=== PATIENT | male | born 1980 | race American Indian/Alaskan Native ===

== ENCOUNTER 2016-10-23 08:31 | Emergency (ER) | payer SELFPAY ==
[2016-10-23 08:37] VITALS: BP 147/99
[2016-10-23] MEDS ORDERED: ROCEPHIN IM ONE (09:02)
[2016-10-23] MEDS ORDERED: XYLOCAINE 1% MPF 5 mL INFILTRATI ONE (09:02)
[2016-10-23] MEDS ORDERED: ZITHROMAX PO ONE (09:02)
--- NOTE | 2016-10-23 09:02 | Emergency Department Report ---
ED Male HPI - General Chief complaint: Urogenital-Male Stated complaint: POSS UTI Time Seen by Provider: 10/23/16 08:46 Source: patient Mode of arrival: Ambulatory Limitations: No Limitations - History of Present Illness MD Complaint: dysuria Onset/Timin -: week(s) Location: penis Radiation: none Severity: moderate Severity scale (0 -10): 4 Quality: burning Consistency: intermittent Improves with: none Worsens with: urination discharge (yellow green ), dysuria. denies: swelling, mass, rash, urinary retention, blood in urine, fever, nausea/vomiting, incontinence - Related Data Sexually active: Yes Previous Rx's Medication Instructions Recorded Last Taken Type Doxycycline [Vibramycin CAP] 100 mg PO Q12HR #20 capsule 10/23/16 Unknown Rx metroNIDAZOLE [Flagyl] 500 mg PO ONCE #4 tablet 10/23/16 Unknown Rx Allergies Allergy/AdvReac Type Severity Reaction Status Date / Time shellfish derived Allergy Swelling Verified 10/23/16 08:35 ED Review of Systems ROS: Stated complaint: POSS UTI Other details as noted in HPI Constitutional: denies: chills, fever Eyes: denies: eye pain, eye discharge, vision change ENT: denies: ear pain, throat pain Respiratory: denies: cough, shortness of breath, wheezing Cardiovascular: denies: chest pain, palpitations Endocrine: no symptoms reported Gastrointestinal: denies: abdominal pain, nausea, diarrhea Genitourinary: urgency, dysuria, frequency, discharge. denies: hematuria, testicular pain, testicular mass Musculoskeletal: denies: back pain, joint swelling, arthralgia Skin: denies: rash, lesions Neurological: denies: headache, weakness, paresthesias Psychiatric: denies: anxiety, depression Hematological/Lymphatic: denies: easy bleeding, easy bruising ED Past Medical Hx - Past Medical History Previous Medical History?: No - Surgical History Past Surgical History?: No - Social History Smoking Status: Current Every Day Smoker Substance Use Type: None - Medications Home Medications: Home Medications Medication Instructions Recorded Confirmed Last Taken Type Doxycycline [Vibramycin CAP] 100 mg PO Q12HR #20 capsule 10/23/16 Unknown Rx metroNIDAZOLE [Flagyl] 500 mg PO ONCE #4 tablet 10/23/16 Unknown Rx ED Physical Exam - General Limitations: No Limitations General appearance: alert, in no apparent distress - Head Head exam: Present: atraumatic, normocephalic - Eye Eye exam: Present: normal appearance - ENT ENT exam: Present: mucous membranes moist - Neck Neck exam: Present: normal inspection - Respiratory Respiratory exam: Present: normal lung sounds bilaterally. Absent: respiratory distress - Cardiovascular Cardiovascular Exam: Present: regular rate, normal rhythm. Absent: systolic murmur, diastolic murmur, rubs, gallop - GI/Abdominal GI/Abdominal exam: Present: soft, normal bowel sounds - Rectal Rectal exam: Present: deferred - exam: Present: normal inspection, urethral discharge, circumcision. Absent: testicular tenderness, scrotal swelling, vertical testicular lie External exam: Present: normal external exam. Absent: erythema, swelling, lesions, lacerations, ecchymosis, bleeding - Extremities Exam Extremities exam: Present: normal inspection - Back Exam Back exam: Present: normal inspection - Neurological Exam Neurological exam: Present: alert, oriented X3 - Psychiatric Psychiatric exam: Present: normal affect, normal mood - Skin Skin exam: Present: warm, dry, intact, normal color. Absent: rash ED Course Vital Signs 10/23/16 08:35 Temperature 98.7 F Pulse Rate 83 Respiratory 18 Rate Blood Pressure 147/99 O2 Sat by Pulse 100 Oximetry ED Medical Decision Making - Medical Decision Making pt is a 36 y/o aam who presents for penile discharge yellow green x 1 week associated symptoms include dysuria frequency and urgency, there is no fever no chills no n/v no abdominal pain no rash no lesions open sores , last contact 1 1 /2 weeks ago partner has bee notified to seek treatment. Critical care attestation.: If time is entered above; I have spent that time in minutes in the direct care of this critically ill patient, excluding procedure time. ED Disposition Clinical Impression: STD (sexually transmitted disease) Disposition: DC-01 TO HOME OR SELFCARE Is pt being admited?: No Does the pt Need Aspirin: No Condition: Good Instructions: Sexually Transmitted Diseases (ED) Additional Instructions: follow up with health department for hiv screening Prescriptions: Doxycycline [Vibramycin CAP] 100 mg PO Q12HR #20 capsule metroNIDAZOLE [Flagyl] 500 mg PO ONCE #4 tablet Forms: Work/School Release Form(ED) Time of Disposition: 09:05
[2016-10-23 09:20] LABS: Bilirubin,Urine NEG (Negative); Blood,Urine NEG (Negative); Ketones,Urine TR mg/dL (Negative); Leukocyte Esterase,Urine LG (Negative); Mucus,Urine 3+ /HPF; Nitrite,Urine NEG (Negative); Urobilinogen,Urine < 2.0 mg/dL (<2.0)
[2016-10-23 09:23] LABS: WBC,Urine > 182.0 /HPF (0.0-6.0)
== END 2016-10-23 09:25 | disposition home or self-care (01) ==
LOC: ED 08:31
DX: A64 Unspecified sexually transmitted disease (principal); F17.200 Nicotine dependence, unspecified, uncomplicated; Z91.013 Allergy to seafood
CPT/HCPCS: 81001; 87591; 96372; 99283; J0696

== ENCOUNTER 2017-02-09 10:01 | Emergency (ER) | payer SELFPAY ==
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
[2017-02-09 12:43] LABS: Bacteria,Urine 1+ /HPF (Negative); Bilirubin,Urine NEG (Negative); Blood,Urine MOD (Negative); Ketones,Urine NEG (Negative); Leukocyte Esterase,Urine LG (Negative); Mucus,Urine 3+ /HPF; Nitrite,Urine NEG (Negative); Protein,Urine <15 mg/dL mg/dL (Negative); Urobilinogen,Urine < 2.0 mg/dL (<2.0)
[2017-02-09] MEDS ORDERED: ZITHROMAX PO ONE (13:29)
[2017-02-09] MEDS ORDERED: ROCEPHIN IM ONE (13:29)
[2017-02-09] MEDS ORDERED: XYLOCAINE 1% MPF 5 mL INFILTRATI ONE (13:29)
[2017-02-09 13:44] VITALS: BP 130/88
[2017-02-09] MEDS ORDERED: FLAGYL PO ONE (13:48)
== END 2017-02-09 14:05 | disposition home or self-care (01) ==
LOC: ED 10:01
DX: N30.01 Acute cystitis with hematuria (principal); F17.210 Nicotine dependence, cigarettes, uncomplicated; F12.10 Cannabis abuse, uncomplicated; Z91.013 Allergy to seafood
CPT/HCPCS: 81001; 87086; 87591; 96372; 99283; J0696

== ENCOUNTER 2017-09-18 23:42 | Emergency (ER) | payer SELFPAY ==
[2017-09-19 00:15] VITALS: BP 137/83
== END 2017-09-19 05:24 | disposition left against medical advice (07) ==
LOC: ED 23:42
DX: K64.9 Unspecified hemorrhoids (principal); Z53.21 Procedure and treatment not carried out due to patient leaving prior to being seen by health care provider

== ENCOUNTER 2017-09-22 10:16 | Emergency (ER) | payer SELFPAY ==
[2017-09-22 10:25] VITALS: BP 122/88
--- NOTE | 2017-09-22 12:45 | Emergency Department Report ---
ED General Adult HPI - General Chief complaint: Rectal Pain Stated complaint: Hemrroids Time Seen by Provider: 09/22/17 12:19 Source: patient Mode of arrival: Ambulatory Limitations: No Limitations - History of Present Illness Initial comments: Patient is a 37-year-old male with no significant past medical history. Presented with a chief complaint of rectal pain secondary to hemorrhoids. Patient stated that his been using [id number] medication but is not helping now. Patient denied any rectal bleeding or vomiting blood. No abdominal pain. He denied any weight loss or fever. - Related Data Previous Rx's Medication Instructions Recorded Last Taken Type Doxycycline [Vibramycin CAP] 100 mg PO Q12HR #20 capsule 10/23/16 Unknown Rx metroNIDAZOLE [Flagyl] 500 mg PO ONCE #4 tablet 10/23/16 Unknown Rx Ciprofloxacin HCl [Ciprofloxacin 500 mg PO Q12H #20 tab 02/09/17 Unknown Rx TAB] Hydrocortisone [Anucort-HC SUPPOS] 25 mg RC BID #20 supp.rect 09/22/17 Unknown Rx Allergies Allergy/AdvReac Type Severity Reaction Status Date / Time shellfish derived Allergy Swelling Verified 10/23/16 08:35 ED Review of Systems ROS: Stated complaint: Hemrroids Other details as noted in HPI Comment: All other systems reviewed and negative Constitutional: denies: chills, fever Cardiovascular: denies: chest pain, palpitations Gastrointestinal: denies: abdominal pain, nausea, vomiting Neurological: denies: headache, weakness ED Past Medical Hx - Past Medical History Previous Medical History?: No - Surgical History Past Surgical History?: Yes - Social History Smoking Status: Never Smoker Substance Use Type: None - Medications Home Medications: Home Medications Medication Instructions Recorded Confirmed Last Taken Type Doxycycline [Vibramycin CAP] 100 mg PO Q12HR #20 capsule 10/23/16 Unknown Rx metroNIDAZOLE [Flagyl] 500 mg PO ONCE #4 tablet 10/23/16 Unknown Rx Ciprofloxacin HCl [Ciprofloxacin 500 mg PO Q12H #20 tab 02/09/17 Unknown Rx TAB] Hydrocortisone [Anucort-HC SUPPOS] 25 mg RC BID #20 supp.rect 09/22/17 Unknown Rx ED Physical Exam - General Limitations: No Limitations General appearance: alert, in no apparent distress - Head Head exam: Present: atraumatic, normocephalic, normal inspection - Eye Eye exam: Present: normal appearance - ENT ENT exam: Present: normal exam, normal orophraynx, mucous membranes moist - Respiratory Respiratory exam: Present: normal lung sounds bilaterally. Absent: respiratory distress, wheezes, rales, rhonchi, stridor, accessory muscle use, decreased breath sounds, prolonged expiratory - Cardiovascular Cardiovascular Exam: Present: regular rate, normal rhythm, normal heart sounds - GI/Abdominal GI/Abdominal exam: Present: soft, normal bowel sounds. Absent: distended, tenderness, guarding, rebound, rigid, organomegaly, mass, bruit, pulsatile mass - Rectal Rectal exam: Present: deferred - Neurological Exam Neurological exam: Present: alert, oriented X3, CN II-XII intact ED Course Vital Signs 09/22/17 10:22 Temperature 98.5 F Pulse Rate 80 Blood Pressure 122/88 O2 Sat by Pulse 98 Oximetry Critical care attestation.: If time is entered above; I have spent that time in minutes in the direct care of this critically ill patient, excluding procedure time. ED Disposition Clinical Impression: Hemorrhoid Disposition: DC-01 TO HOME OR SELFCARE Is pt being admited?: No Condition: Stable Instructions: Hemorrhoids (ED) Prescriptions: Hydrocortisone [Anucort-HC SUPPOS] 25 mg RC BID #20 supp.rect Referrals: PRIMARY CARE, [Primary Care Provider] - 3-5 Days
== END 2017-09-22 12:51 | disposition home or self-care (01) ==
LOC: ED 10:16
DX: K62.5 Hemorrhage of anus and rectum (principal); Z91.013 Allergy to seafood
CPT/HCPCS: 99282

== ENCOUNTER 2018-06-12 10:30 | Emergency (ER) | payer SELFPAY ==
[2018-06-12 10:39] VITALS: BP 143/79
[2018-06-12] MEDS ORDERED: IBUPROFEN PO ONE (11:15)
[2018-06-12] MEDS ORDERED: CLEOCIN PO ONE (11:16)
--- NOTE | 2018-06-12 11:28 | Emergency Department Report ---
HPI - General Chief Complaint: Extremity Injury, Upper Time Seen by Provider: 06/12/18 10:50 - HPI HPI: This is a 38-year-old male with no prior medical history who presents to the ED complaining of left thumb swelling and pain for the past 3 days. Patient states he thinks that he got a foreign object into his finger about 5 days ago. Patient states he pulled it out he is unsure what it was at this point. Patient's is 3 days ago pain and swelling began. He denies fever/chills/nausea vomiting ED Past Medical Hx - Past Medical History Previous Medical History?: No - Surgical History Past Surgical History?: No - Social History Smoking Status: Never Smoker Substance Use Type: Marijuana - Medications Home Medications: Home Medications Medication Instructions Recorded Confirmed Last Taken Type Doxycycline [Vibramycin CAP] 100 mg PO Q12HR #20 capsule 10/23/16 Unknown Rx metroNIDAZOLE [Flagyl] 500 mg PO ONCE #4 tablet 10/23/16 Unknown Rx Ciprofloxacin HCl [Ciprofloxacin 500 mg PO Q12H #20 tab 02/09/17 Unknown Rx TAB] Hydrocortisone [Anucort-HC SUPPOS] 25 mg RC BID #20 supp.rect 09/22/17 Unknown Rx Amoxicillin/K Clav Tab [Augmentin 1 tab PO Q12HR #10 tab 06/12/18 Unknown Rx 875 mg] Clindamycin [Clindamycin CAP] 300 mg PO TID #15 capsule 06/12/18 Unknown Rx Ibuprofen [Motrin 800 MG tab] 800 mg PO TID #30 tablet 06/12/18 Unknown Rx ED Review of Systems ROS: Stated complaint: SWOLLEN THUMB Other details as noted in HPI Comment: All other systems reviewed and negative Physical Exam - Physical Exam Vital Signs: Vital Signs 06/12/18 10:38 Temperature 97.8 F Pulse Rate 79 Respiratory 20 Rate Blood Pressure 143/79 O2 Sat by Pulse 98 Oximetry Physical Exam: GENERAL: Alert and oriented x3, no apparent distress, Normal Gait, atraumatic. HEAD: Head is normocephalic and a-traumatic. LUNGS: Symetrical with respiration, No wheezing, no rales or crackles, CTAB. HEART: S1, S2 present, regular rate and rhythm without murmur, no rubs, no gallops. Non tender to palpation EXTREMITIES/MUSCULOSKELETAL: No cyanosis, clubbing, rash, lesions or edema. Full ROM bilaterally. Radial Pulses 2+ bilaterally. Swelling to left thumb, mildly tender to palpation, NEUROLOGIC: The patient is cooperative with no focal neurologic deficits. SKIN: Warm and dry, No lesions, No ulceration or induration present. ED Course Vital Signs 06/12/18 10:38 Temperature 97.8 F Pulse Rate 79 Respiratory 20 Rate Blood Pressure 143/79 O2 Sat by Pulse 98 Oximetry ED Medical Decision Making - Radiology Data Radiology results: report reviewed, image reviewed FINAL REPORT EXAM: XR FINGER(S) 2+V LT HISTORY: thumb pain and swelling TECHNIQUE: Left thumb, three views PRIORS: None. FINDINGS: There is an ossification at the medial base 1st proximal phalanx which may relate to an old injury. No acute fracture seen. No dislocations seen. IMPRESSION: Ossification at medial base of 1st proximal phalanx may relate to an old injury. Transcribed By: DONNA Dictated By: REBA AYERS MD Electronically Authenticated By: REBA AYERS MD Signed Date/Time: 06/12/18 1221 - Medical Decision Making Discussed x-ray findings with the patient. Discussed with the patient to take medication describes follow-up with primary physician. Patient has not acute distress. Understands instructions given Critical care attestation.: If time is entered above; I have spent that time in minutes in the direct care of this critically ill patient, excluding procedure time. ED Disposition Clinical Impression: Thumb pain Disposition: DC-01 TO HOME OR SELFCARE Is pt being admited?: No Does the pt Need Aspirin: No Condition: Stable Instructions: Soft Tissue Foreign Body (ED), Cellulitis (ED) Additional Instructions: Make sure to follow up with the primary care physician as discussed. Take all your medications as you've been prescribed. If you have any worsening symptoms or develop new symptoms please return to ED immediately. Prescriptions: Amoxicillin/K Clav Tab [Augmentin 875 mg] 1 tab PO Q12HR #10 tab Clindamycin [Clindamycin CAP] 300 mg PO TID #15 capsule Ibuprofen [Motrin 800 MG tab] 800 mg PO TID #30 tablet Referrals: [facility] [Other] - 3-5 Days Forms: Work/School Release Form(ED) Time of Disposition: 12:34
--- NOTE | 2018-06-12 12:21 | XRay Report ---
FINAL REPORT EXAM: XR FINGER(S) 2+V LT HISTORY: thumb pain and swelling TECHNIQUE: Left thumb, three views PRIORS: None. FINDINGS: There is an ossification at the medial base 1st proximal phalanx which may relate to an old injury. No acute fracture seen. No dislocations seen. IMPRESSION: Ossification at medial base of 1st proximal phalanx may relate to an old injury.
== END 2018-06-12 12:54 | disposition home or self-care (01) ==
LOC: ED 10:30
DX: M79.645 Pain in left finger(s) (principal); M79.89 Other specified soft tissue disorders; F12.10 Cannabis abuse, uncomplicated; Z91.013 Allergy to seafood

== ENCOUNTER 2020-04-03 02:48 | Emergency (ER) | payer SELFPAY ==
[2020-04-03 05:32] VITALS: BP 152/97
[2020-04-03] MEDS ORDERED: dexAMETHasone 20 MG/5 ML VIAL IM ONE (05:49)
[2020-04-03] MEDS ORDERED: KETOROLAC 30 MG/1 ML INJ IM ONE (05:49)
[2020-04-03] MEDS ORDERED: oxyCODONE /ACETAMINOPHEN 5-325MG TAB PO ONE (05:49)
[2020-04-03] MEDS ORDERED: ONDANSETRON 4 MG ODT TAB PO ONE (05:49)
[2020-04-03] MEDS ORDERED: AMOXICILLIN/K CLAV 875/125MG TAB PO ONE (05:49)
--- NOTE | 2020-04-03 05:56 | Emergency Department Report ---
ED General Adult HPI - General Chief complaint: Dental/Oral Stated complaint: TOOTHACHE Source: patient Mode of arrival: Ambulatory Limitations: No Limitations - History of Present Illness Initial comments: Patient is a 39-year-old -Gren[place] male with no past medical history who presents to the ED with complaint of acute onset persistent severe painful swollen right mandibular gingiva with severely tender right mandibular premolar molar toothache for the last 5 days. Patient states that in the last 2 days the pain is worsened such that he developed right mandibular and cheek swelling. Patient states that he has been taking [id number] medications for pain with no relief. Patient states that he has not followed up with any dentist. Patient denies dizziness, fever, chills, nausea, vomiting, cough, sore throat, traumatic injury, headache, seizures, abdominal pain, neck pain or chest pain and shortness of breath. MD Complaint: swollen painful right mandible; dental pain -: Sudden, days(s) (5) Location: face, mouth Radiation: non-radiation Severity scale (0 -10): 8 Quality: aching, sharp Consistency: constant Improves with: none Worsens with: eating Associated Symptoms: denies other symptoms, headaches, loss of appetite, malaise. denies: confusion, chest pain, cough, diaphoresis, fever/chills, [place]/vomiting, rash, seizure, shortness of breath, syncope, weakness, other Treatments Prior to Arrival: none - Related Data Previous Rx's Medication Instructions Recorded Last Taken Type DOXYCYCLINE Hyclate [Vibramycin 100 mg PO Q12HR #20 capsule 10/23/16 Unknown Rx CAP] Ciprofloxacin HCl [Ciprofloxacin 500 mg PO Q12H #20 tab 02/09/17 Unknown Rx TAB] Hydrocortisone [Anucort-HC SUPPOS] 25 mg RC BID #20 supp.rect 09/22/17 Unknown Rx Amoxicillin/K Clav Tab [Augmentin 1 tab PO Q12HR #10 tab 06/12/18 Unknown Rx 875 mg] Clindamycin [Clindamycin CAP] 300 mg PO TID #15 capsule 06/12/18 Unknown Rx Ibuprofen [Motrin 800 MG tab] 800 mg PO TID #30 tablet 06/12/18 Unknown Rx Acetaminophen/Codeine [Tylenol 1 tab PO Q6H PRN #12 tab 04/03/20 Unknown Rx /Codeine # 3 tab] Clindamycin [Clindamycin CAP] 300 mg PO Q6HR #80 capsule 04/03/20 Unknown Rx Ketorolac [Toradol] 10 mg PO Q8H PRN #20 tablet 04/03/20 Unknown Rx metroNIDAZOLE [Flagyl TAB] 500 mg PO Q12H #20 tablet 04/03/20 Unknown Rx Allergies Allergy/AdvReac Type Severity Reaction Status Date / Time shellfish derived Allergy Swelling Verified 10/23/16 08:35 ED Review of Systems ROS: Stated complaint: TOOTHACHE Other details as noted in HPI Constitutional: denies: chills, fever Eyes: denies: eye pain, eye discharge, vision change ENT: dental pain (Right mandibular premolar and molar toothache with swollen right mandible). denies: ear pain, throat pain Respiratory: denies: cough, shortness of breath, SOB with exertion, wheezing Cardiovascular: denies: chest pain, palpitations Endocrine: no symptoms reported Gastrointestinal: denies: abdominal pain, nausea, diarrhea Genitourinary: denies: urgency, dysuria Musculoskeletal: denies: back pain, joint swelling, arthralgia Skin: denies: rash, lesions Neurological: denies: headache, weakness, paresthesias Psychiatric: denies: anxiety, depression Hematological/Lymphatic: denies: easy bleeding, easy bruising ED Past Medical Hx - Past Medical History Previous Medical History?: No - Surgical History Past Surgical History?: No - Social History Smoking Status: Current Every Day Smoker Substance Use Type: Alcohol, Marijuana - Medications Home Medications: Home Medications Medication Instructions Recorded Confirmed Last Taken Type DOXYCYCLINE Hyclate [Vibramycin 100 mg PO Q12HR #20 capsule 10/23/16 Unknown Rx CAP] Ciprofloxacin HCl [Ciprofloxacin 500 mg PO Q12H #20 tab 02/09/17 Unknown Rx TAB] Hydrocortisone [Anucort-HC SUPPOS] 25 mg RC BID #20 supp.rect 09/22/17 Unknown Rx Amoxicillin/K Clav Tab [Augmentin 1 tab PO Q12HR #10 tab 06/12/18 Unknown Rx 875 mg] Clindamycin [Clindamycin CAP] 300 mg PO TID #15 capsule 06/12/18 Unknown Rx Ibuprofen [Motrin 800 MG tab] 800 mg PO TID #30 tablet 06/12/18 Unknown Rx Acetaminophen/Codeine [Tylenol 1 tab PO Q6H PRN #12 tab 04/03/20 Unknown Rx /Codeine # 3 tab] Clindamycin [Clindamycin CAP] 300 mg PO Q6HR #80 capsule 04/03/20 Unknown Rx Ketorolac [Toradol] 10 mg PO Q8H PRN #20 tablet 04/03/20 Unknown Rx metroNIDAZOLE [Flagyl TAB] 500 mg PO Q12H #20 tablet 04/03/20 Unknown Rx ED Physical Exam - General Limitations: No Limitations General appearance: alert, in no apparent distress - Head Head exam: Present: atraumatic, normocephalic, normal inspection - Eye Eye exam: Present: normal appearance, PERRL, EOMI Pupils: Present: normal accommodation - ENT ENT exam: Present: mucous membranes moist, TM's normal bilaterally, normal external ear exam, other (Swollen severely tender right mandibular gingiva; severely tender right mandibular premolar and molar tooth tenderness) - Neck Neck exam: Present: normal inspection, full ROM. Absent: tenderness - Respiratory Respiratory exam: Present: normal lung sounds bilaterally. Absent: respiratory distress, wheezes, rales, rhonchi, stridor, chest wall tenderness, accessory muscle use, decreased breath sounds, prolonged expiratory - Cardiovascular Cardiovascular Exam: Present: regular rate, normal rhythm, normal heart sounds. Absent: systolic murmur, diastolic murmur, rubs, gallop - GI/Abdominal GI/Abdominal exam: Present: soft, normal bowel sounds. Absent: distended, tenderness, guarding, rebound, hyperactive bowel sounds, hypoactive bowel sounds, organomegaly - Extremities Exam Extremities exam: Present: normal inspection, full ROM, normal capillary refill - Back Exam Back exam: Present: normal inspection, full ROM. Absent: tenderness, CVA tenderness (R), CVA tenderness (L), muscle spasm, paraspinal tenderness, vertebral tenderness - Neurological Exam Neurological exam: Present: alert, oriented X3, CN II-XII intact, normal gait, reflexes normal - Psychiatric Psychiatric exam: Present: normal affect, normal mood - Skin Skin exam: Present: warm, dry, intact, normal color. Absent: rash ED Course Vital Signs 04/03/20 02:55 Temperature 98.2 F Pulse Rate 69 Respiratory 18 Rate Blood Pressure 152/97 O2 Sat by Pulse 97 Oximetry ED Medical Decision Making - Medical Decision Making This is a 39-year-old -Gren[place] male with no past medical history who presents to the ED with complaint of acute onset persistent severe painful swollen right mandibular gingiva with severely tender right mandibular premolar molar toothache for the last 5 days. Patient states that in the last 2 days the pain is worsened such that he developed right mandibular and cheek swelling. Patient states that he has been taking [id number] medications for pain with no relief. Patient states that he has not followed up with any dentist. In the ED, patient is alert and oriented x3 and is not in distress but appears to be in significant pain. Patient was treated for pain in the ED and also given initial oral antibiotics in the ED. On reevaluation, patient's pain is well controlled medications. Patient will discharge home on pain medications and antibiotics and advised to follow-up with his dentist in 7 to 10 days for reevaluation or return to the ED immediately if symptoms get worse. - Differential Diagnosis Dental abscess; gingivitis; dental caries Critical care attestation.: If time is entered above; I have spent that time in minutes in the direct care of this critically ill patient, excluding procedure time. ED Disposition Clinical Impression: Acute gingivitis, Dental abscess, Dental caries, Swelling of right side of face Disposition: DC-01 TO HOME OR SELFCARE Is pt being admited?: No Does the pt Need Aspirin: No Condition: Stable Instructions: Dental Abscess, Ipyp-yn-Gvoo, Trench Mouth Additional Instructions: Take medication with food, drink plenty of fluids and follow-up with your dentist in 7 to 10 days for reevaluation. Return to the ED immediately if symptoms get worse. Prescriptions: Clindamycin [Clindamycin CAP] 300 mg PO Q6HR #80 capsule metroNIDAZOLE [Flagyl TAB] 500 mg PO Q12H #20 tablet Ketorolac [Toradol] 10 mg PO Q8H PRN #20 tablet PRN Reason: Pain Acetaminophen/Codeine [Tylenol /Codeine # 3 tab] 1 tab PO Q6H PRN #12 tab PRN Reason: Severe pain Referrals: [facility] [Outside] - 3-5 Days Time of Disposition: 05:56 Print Language: NORWEGIAN
== END 2020-04-03 06:22 | disposition home or self-care (01) ==
LOC: ED 02:48
DX: K05.00 Acute gingivitis, plaque induced (principal); K04.7 Periapical abscess without sinus; K02.9 Dental caries, unspecified; R22.0 Localized swelling, mass and lump, head; F17.200 Nicotine dependence, unspecified, uncomplicated; F12.90 Cannabis use, unspecified, uncomplicated; Z79.899 Other long term (current) drug therapy; Z91.013 Allergy to seafood
CPT/HCPCS: 96372; 99282; J1100; J1885; Q0162

== ENCOUNTER 2020-11-01 22:23 | Emergency (ER) | payer SELFPAY ==
[2020-11-02] MEDS ORDERED: ONDANSETRON 4 MG/2 ML INJ IV ONE (02:55)
[2020-11-02] MEDS ORDERED: dexAMETHasone 20 MG/5 ML VIAL IV ONE (02:55)
[2020-11-02] MEDS ORDERED: MORPHINE 2 MG/1 ML INJ IV ONE (02:55)
--- NOTE | 2020-11-02 03:00 | Emergency Department Report ---
<FAISAL IGNACIO III - Last Filed: 11/02/20 06:01> ED General Adult HPI - General Chief complaint: Dental/Oral Stated complaint: TOOTHACHE,ABSEST Time Seen by Provider: 11/02/20 02:47 - Related Data Previous Rx's Medication Instructions Recorded Last Taken Type DOXYCYCLINE Hyclate [Vibramycin 100 mg PO Q12HR #20 capsule 10/23/16 Unknown Rx CAP] Ciprofloxacin HCl [Ciprofloxacin 500 mg PO Q12H #20 tab 02/09/17 Unknown Rx TAB] Hydrocortisone [Anucort-HC SUPPOS] 25 mg RC BID #20 supp.rect 09/22/17 Unknown Rx Amoxicillin/K Clav Tab [Augmentin 1 tab PO Q12HR #10 tab 06/12/18 Unknown Rx 875 mg] Clindamycin [Clindamycin CAP] 300 mg PO TID #15 capsule 06/12/18 Unknown Rx Ibuprofen [Motrin 800 MG tab] 800 mg PO TID #30 tablet 06/12/18 Unknown Rx Acetaminophen/Codeine [Tylenol 1 tab PO Q6H PRN #12 tab 04/03/20 Unknown Rx /Codeine # 3 tab] Clindamycin [Clindamycin CAP] 300 mg PO Q6HR #80 capsule 04/03/20 Unknown Rx Ketorolac [Toradol] 10 mg PO Q8H PRN #20 tablet 04/03/20 Unknown Rx metroNIDAZOLE [Flagyl TAB] 500 mg PO Q12H #20 tablet 04/03/20 Unknown Rx Clindamycin [Clindamycin CAP] 300 mg PO Q6H 14 Days capsule 11/02/20 Unknown Rx Allergies Allergy/AdvReac Type Severity Reaction Status Date / Time shellfish derived Allergy Swelling Verified 10/23/16 08:35 ED Past Medical Hx - Medications Home Medications: Home Medications Medication Instructions Recorded Confirmed Last Taken Type DOXYCYCLINE Hyclate [Vibramycin 100 mg PO Q12HR #20 capsule 10/23/16 Unknown Rx CAP] Ciprofloxacin HCl [Ciprofloxacin 500 mg PO Q12H #20 tab 02/09/17 Unknown Rx TAB] Hydrocortisone [Anucort-HC SUPPOS] 25 mg RC BID #20 supp.rect 09/22/17 Unknown Rx Amoxicillin/K Clav Tab [Augmentin 1 tab PO Q12HR #10 tab 06/12/18 Unknown Rx 875 mg] Clindamycin [Clindamycin CAP] 300 mg PO TID #15 capsule 06/12/18 Unknown Rx Ibuprofen [Motrin 800 MG tab] 800 mg PO TID #30 tablet 06/12/18 Unknown Rx Acetaminophen/Codeine [Tylenol 1 tab PO Q6H PRN #12 tab 04/03/20 Unknown Rx /Codeine # 3 tab] Clindamycin [Clindamycin CAP] 300 mg PO Q6HR #80 capsule 04/03/20 Unknown Rx Ketorolac [Toradol] 10 mg PO Q8H PRN #20 tablet 04/03/20 Unknown Rx metroNIDAZOLE [Flagyl TAB] 500 mg PO Q12H #20 tablet 04/03/20 Unknown Rx Clindamycin [Clindamycin CAP] 300 mg PO Q6H 14 Days capsule 11/02/20 Unknown Rx ED Course - Reevaluation(s) Reevaluation #1: I reviewed the findings and management of this patient in real-time and I have personally seen and examined this patient and participated in the decision making for this patient with the midlevel. Patient is a 40-year-old male that presents emergency room with dental pain and facial swelling. Patient had labs done and labs were essentially unremarkable. Patient had CT done and it showed widespread oral abscess and inflammation. Patient also had sublingual inflammation and abscess concerning for [place] angina. I examined the patient. CV exam shows normal S1-S2. Patient's lung sounds are clear. Patient's oral exam shows oral abscess in the right side lifting of the right aspect of the tongue. Patient given IV antibiotics. Incidental findings, I recommended the midlevel transfer to a facility with ENT and oral surgery support. Patient was accepted to [facility]. However the patient refused to be transferred and signed out AMA. I discussed the risk with patient. Patient voiced understanding the risk. Patient signed AMA form. Even though the patient signed out AMA, and official discharge will be rendered. I discussed all results and clinical findings with patient. I discussed plan of care with patient. Patient refused to be transferred. Patient given discharge instructions. Patient voiced understanding of discharge instructions. 11/02/20 05:45 ED Medical Decision Making - Lab Data Result diagrams: 11/02/20 02:59 11/02/20 02:59 ED Disposition Clinical Impression: Left against medical advice, Oral abscess, Angina, [place] Disposition: DC-07 LEFT AGAINST MED ADVICE Is pt being admited?: No Does the pt Need Aspirin: No Condition: Undetermined Additional Instructions: You have chosen to leave the emergency department AGAINST MEDICAL ADVICE. Please take Clindamycin with food as directed and follow-up with a dentist as soon as possible. Return to the emergency department immediately for new or worsening symptoms. Prescriptions: Clindamycin [Clindamycin CAP] 300 mg PO Q6H 14 Days capsule Referrals: [facility] [Outside] - 3-5 Days Forms: AMA Form <CLINT [employer] - Last Filed: 11/02/20 06:31> ED General Adult HPI - General Source: patient Mode of arrival: Ambulatory Limitations: No Limitations - History of Present Illness Initial comments: 40-year-old male patient presents to the emergency department with complaints of painful facial swelling for 4 days. No preceding fall, trauma, or injury. Patient states he was previously evaluated by a dentist and was advised to undergo multiple dental extractions. Patient intended to return for the procedure once the swelling resolved. However, he has been unable to schedule a follow-up appointment. He is not currently on antibiotics. Patient endorses difficulty speaking but is able to swallow and handle his secretions. Denies fever, chills, neck stiffness, shortness of breath. Denies all other complaints at this time. ED Review of Systems ROS: Stated complaint: TOOTHACHE,ABSEST Other details as noted in HPI Other: GENERAL: Negative for fever. ENT: Positive for dental pain and facial swelling CARDIOVASCULAR: Negative for chest pain. PULMONARY: Negative for shortness of breath. GASTROINTESTINAL: Negative for abdominal pain. MUSCULOSKELETAL: Negative for back pain. NEUROLOGICAL: Negative for headache. INTEGUMENTARY: Negative for rash. ED Past Medical Hx - Past Medical History Previous Medical History?: No - Surgical History Past Surgical History?: No - Social History Smoking Status: Never Smoker Substance Use Type: None ED Physical Exam - General Limitations: No Limitations - Other Other exam information: General: Awake, appropriately interactive, no acute distress. Dental: Oral mucosa is moist. The gingiva appear normal. Right lower molars are decayed to the gumline. There is significant facial swelling along the distribution of the right mandible extending towards the submandibular space. Hoarseness noted although patient is speaking in full sentences and handling secretions without difficulty. No trismus. Airway is patent. Neck: Supple. Full range of motion intact. Cardiovascular: Normal peripheral perfusion. Pulmonary: No respiratory distress. Patient is speaking normally without use of accessory muscles. Skin: No apparent rashes or lesions. Neurological: No facial asymmetry. Speech is clear. Follows commands. Patient is alert and oriented. Musculoskeletal: Moves all four extremities spontaneously with normal range of motion. Psych: Cooperative. Appropriate mood and affect. ED Course Vital Signs 11/01/20 11/02/20 11/02/20 23:18 03:15 03:45 Temperature 99.0 F Pulse Rate 75 Respiratory 18 18 18 Rate Blood Pressure 136/87 O2 Sat by Pulse 99 Oximetry 11/02/20 11/02/20 05:16 05:30 Temperature Pulse Rate 57 L 80 Respiratory 16 13 Rate Blood Pressure 121/86 121/86 O2 Sat by Pulse 97 98 Oximetry ED Medical Decision Making - Lab Data Result diagrams: 11/02/20 02:59 11/02/20 02:59 - Radiology Data [facility] [address] [place] [address] Cat Scan Report Signed Patient: GELY LYLES MR#: [id number] : 1980 Acct:[id number] Age/Sex: 40 / M ADM Date: 11/01/20 Loc: ED Attending Dr: Ordering Physician: IZZY MIRELES Date of Service: 11/02/20 Procedure(s): CT neck w con Accession Number(s): [id number] cc: IZZY MIRELES EXAMINATION: CT neck w con HISTORY: abscess/infection R low molars, r/o deep space inf TECHNIQUE: Spiral CT examination of the neck performed with display of axial [address] scans at this location are performed using CT dose reduction for ALARA by means of automated exposure control. COMPARISON: None available FINDINGS: Evaluation is limited due to extensive streak artifact from dental amalgam. There is overall poor dentition with multiple missing teeth. Prominent dental caries seen within the right posterior mandibular molar with periapical lucencies and cortical disruption of the lingual surface of the right mandible. Suggestion of ill-defined 3.3 x 1.4 cm hypoattenuating collection along the area of cortical disruption of the lingual surface of the right mandible (series 2 image 26) Prominent dental caries are seen within the apposing right maxillary molar. Missing left mandibular molar with prominent cortical disruption of the lingual surface. No definite associated collection in this region. Asymmetric soft tissue swelling of the right buccal region with inflammatory stranding, compatible cellulitis. Shotty lymph nodes are present in this region. No organized collection is seen within the buccal soft tissues. There is edema within the hypopharynx with associated narrowing, though the airway is patent. No retropharyngeal fluid or abscess detected. IMPRESSION: 1. Right facial cellulitis with multifocal dental disease with prominent cortical disruption along the lingual surface of the right mandible. Suggestion of ill-defined 3.3 cm collection in this region may reflect phlegmon or developing abscess, though evaluation is significantly limited due to streak artifact from dental amalgam. 2. Reactive edema and narrowing of the hypopharynx, though the airway is patent. No retropharyngeal fluid or abscess identified. Signer Name: Susan Das MD Signed: 11/02/2020 4:45 AM Workstation Name: [id number] Transcribed By: JS Dictated By: SUSAN DAS MD Electronically Authenticated By: SUSAN DAS MD Signed Date/Time: 11/02/20444 DD/ 0 TD/TT: - Medical Decision Making Differential diagnosis including but not limited to: dental abscess, Raleigh's angina, necrotizing gingivitis, dental caries Patient presents to the emergency department with complaints of painful right- sided facial swelling secondary to known dental infection affecting the right lower molars. He is afebrile, hemodynamically stable, no hypoxia, no respiratory distress. CT of the neck shows right facial cellulitis with prominent cortical disruption along the lingual surface of the right mandible, likely developing abscess, and reactive edema/narrowing of the hypopharynx. Clinical presentation is concerning for Raleigh's angina. Given IV Unasyn, IV Clindamycin, and IV Decadron. Case discussed with oral surgeon at [facility], who agrees to evaluate the patient and requests transfer to [facility] emergency department. Case discussed with attending emergency physician at [facility], who agrees to assume care of patient upon arrival to their facility. Although patient was initially agreeable to transfer, he ultimately refused, and signed out AGAINST MEDICAL ADVICE. The patient chooses to leave AGAINST MEDICAL ADVICE. The patients ability to make an informed decision has been assessed and it has been determined that the patient has the capacity to comprehend the information about their current medical condition and appreciate the impact of the disease and the consequence of various options for treatment, including forgoing treatment. The patient possesses the ability to evaluate all treatment options, compare the risks and benefits of each option, communicate this choice in a consistent manner over time, and is able to make choices that are not irrational. The patient has been informed about the ideal further testing, treatments, and evaluations that may be indicated during the current emergency department visit as well as any possi ble alternatives that could be accomplished in a timely manner. The patient is aware of the possible risks of foregoing any or all of these interventions and the patient acknowledges that the decision to leave may result in undesirable consequences such as , permanent disability and/or loss of current lifestyle. Even through leaving AGAINST MEDICAL ADVICE is not ideal, the patient has been instructed to follow any discharge instructions given, take any medications prescribed, and resume care as soon as possible with another provider. Additionally, it has been clearly stated that the patient is welcome to return at any time to continue care at this facility. Case discussed with Dr. Ignacio, attending emergency physician, who personally evaluated the patient and agrees with diagnostic work-up/plan of care. Critical care attestation.: If time is entered above; I have spent that time in minutes in the direct care of this critically ill patient, excluding procedure time. ED Disposition Is pt being admited?: No Time of Disposition: 05:56
[2020-11-02] MEDS ORDERED: AMPICILLIN/SULBACTA 3GM/100ML 3 GM/100 ML BAG IV ONE (03:15)
[2020-11-02 03:31] LABS: Basophils % (Auto) 0.2 % (0.0-1.8); Eosinophils # (Auto) 0.2 K/mm3 (0.0-0.4); Eosinophils % (Auto) 2.4 % (0.0-4.3); Hemoglobin 12.9 gm/dl (11.8-15.2); Lymphocytes # (Auto) 1.1 K/mm3 (1.2-5.4); Lymphocytes % (Auto) 14.6 % (13.4-35.0); Mean Corpuscular HGB Conc 33 % (32-34); Mean Corpuscular Volume 85 fl (84-94); Monocytes # (Auto) 1.1 K/mm3 (0.0-0.8); Monocytes % (Auto) 14.5 % (0.0-7.3); Platelet Count 197 K/mm3 (140-440); Red Cell Distribution Width 14.9 % (13.2-15.2)
[2020-11-02 03:49] LABS: Alanine Aminotransferase 16 units/L (7-56); Albumin 4.4 g/dL (3.9-5); Blood Urea Nitrogen 9 mg/dL (9-20); Calcium 9.2 mg/dL (8.4-10.2); Hemolysis Index 3
[2020-11-02 03:51] LABS: BUN/Creatinine Ratio 13
--- NOTE | 2020-11-02 04:49 | Cat Scan Report ---
EXAMINATION: CT neck w con HISTORY: abscess/infection R low molars, r/o deep space inf TECHNIQUE: Spiral CT examination of the neck performed with display of axial [address] scans at this location are performed using CT dose reduction for ALARA by means of automated expos ure control. COMPARISON: None available FINDINGS: Evaluation is limited due to extensive streak artifact from dental amalgam. There is overal l poor dentition with multiple missing teeth. Prominent dental caries seen within the right posterior mandibular molar with periapical lucencies and cortical disruption of the lingual surface of the rig ht mandible. Suggestion of ill-defined 3.3 x 1.4 cm hypoattenuating collection along the area of wiliam ical disruption of the lingual surface of the right mandible (series 2 image 26) Prominent dental car ies are seen within the apposing right maxillary molar. Missing left mandibular molar with prominent cortical disruption of the lingual surface. No definite associated collection in this region. Asymmetric soft tissue swelling of the right buccal region with inflammatory stranding, compatible ce llulitis. Shotty lymph nodes are present in this region. No organized collection is seen within the b uccal soft tissues. There is edema within the hypopharynx with associated narrowing, though the airway is patent. No retr opharyngeal fluid or abscess detected. IMPRESSION: 1. Right facial cellulitis with multifocal dental disease with prominent cortical disruption along t he lingual surface of the right mandible. Suggestion of ill-defined 3.3 cm collection in this region may reflect phlegmon or developing abscess, though evaluation is significantly limited due to streak artifact from dental amalgam. 2. Reactive edema and narrowing of the hypopharynx, though the airway is patent. No retropharyngeal fluid or abscess identified. Signer Name: Ty Das MD Signed: 11/02/2020 4:45 AM Workstation Name: [id number]
[2020-11-02 05:30] VITALS: BP 121/86
== END 2020-11-02 06:05 | disposition left against medical advice (07) ==
LOC: ED 22:23
DX: K12.2 Cellulitis and abscess of mouth (principal); Z91.013 Allergy to seafood; Z79.899 Other long term (current) drug therapy
CPT/HCPCS: 36415; 70491; 80053; 85025; 96365; 96375; 99284; J0295; J1100; J2270; J2405; Q9967